=== PATIENT | female | born 1990 | race Caucasian/White ===

== ENCOUNTER 2018-07-28 10:43 | Outpatient (REF) | payer MEDICARE, MEDICAID, SELFPAY | END 2018-07-28 11:03 | LOC: LBN 10:43 | PROVIDERS: PCP Nurse Practitioner; Visit Provider Nurse Practitioner | DX: Z11.3 Encounter for screening for infections with a predominantly sexual mode of transmission (principal) | CPT/HCPCS: 87491; 87591; 87480; 87510; 87660 ==

== ENCOUNTER 2018-07-29 17:51 | Outpatient (REF) | payer MEDICARE, MEDICAID, SELFPAY ==
[2018-07-31 15:14] LABS: Chlamydia Result Negative; GC Result Negative; Specimen Description CERVIX
== END 2018-07-29 18:11 ==
LOC: LBN 17:51
PROVIDERS: PCP Nurse Practitioner; Visit Provider Nurse Practitioner
DX: Z11.3 Encounter for screening for infections with a predominantly sexual mode of transmission (principal)
CPT/HCPCS: 87491; 87591

== ENCOUNTER 2023-06-30 03:59 | Outpatient (CLI) | payer OTHER, SELFPAY ==
[2023-06-30 08:14] LABS: Abs Immature Grans 0.01 10^3/uL (0.0-0.06); Absolute Basophil Count 0.04 10^3/uL (0.0-0.2); Absolute Eosinophil Count 0.16 10^3/uL (0.0-0.7); Absolute Lymphocyte Count 1.58 10^3/uL (1.2-3.4); Absolute Monocyte Count 0.22 10^3/uL (0.1-0.8); Absolute Neutrophil Count 2.35 10^3/uL (1.2-6.7); Basophils % 0.9; Eosinophils % 3.7; HGB 14.1 g/dL (11.2-15.7); Immature Grans % 0.2; Lymphocytes % 36.2; MCH 30.5 pg (27.0-33.0); MCHC 33.6 % (32.0-36.0); MCV 91 fL (80-95); MPV 10.2 fL (8.0-11.0); Platelet Count 221 10^3/uL (130-400); RBC 4.63 10^6/uL (3.93-5.22); RDW 11.9 % (11.7-14.6); RDW-SD 39.5 fL; WBC 4.36 10^3/uL (4.4-10.8)
[2023-06-30 08:46] LABS: Hemoglobin A1C 5.3 % (<5.7)
[2023-06-30 09:28] LABS: Vitamin D 25 Total 49.7 ng/mL (30-100)
[2023-06-30 09:47] LABS: AST 14 U/L (15-37); Albumin 3.9 g/dL (3.4-5.0); Alkaline Phosphatase 77 U/L (46-116); Anion Gap 8.7 mmol/L (3-11); BUN 14 mg/dL (7-18); Bilirubin, Total 0.5 mg/dL (0.2-1.0); CO2 27.3 mmol/L (21.0-32.0); CREATININE 0.9 mg/dL (0.55-1.02); Calcium 9.1 mg/dL (8.5-10.1); Calculated LDL 104 mg/dL (<100); Chloride 101 mmol/L (98-107); Cholesterol 193 mg/dL (<200); Glucose 98 mg/dL (74-106); HDL Cholesterol 70 mg/dL (40-60); Sodium 137 mmol/L (136-145); TSH (W/Ref FT4) 2.83 uIU/mL (0.36-3.74); Total Protein 7.4 g/dL (6.4-8.2); Triglyceride 97 mg/dL (<150)
[2023-06-30 09:57] LABS: ALT 25 U/L (14-59)
[2023-07-01 09:54] LABS: HBs Antibody, Quant 13.9 mIU/mL (See Note); Hepatitis B Surface Ab Positive (See Note)
== END 2023-06-30 04:00 | disposition home or self-care (01) ==
LOC: LBO 04:01
PROVIDERS: Absent Provider Nurse Practitioner; PCP Nurse Practitioner; Visit Provider Nurse Practitioner
DX: R63.4 Abnormal weight loss (principal); Z85.71 Personal history of Hodgkin lymphoma; E55.9 Vitamin D deficiency, unspecified; Z01.84 Encounter for antibody response examination
CPT/HCPCS: 36415; 80053; 80061; 82306; 86706; 83036; 84443; 85025

== ENCOUNTER 2023-08-06 16:48 | Outpatient (REF) | payer OTHER, SELFPAY ==
--- NOTE | 2023-08-06 16:00 | PAPFT_PTH ---
PATIENT: Tiki Ferris LOC: [facility] U#:[id number] AGE/SX: 32/F ROOM: RE08/06/[address]: Jena Poe MD : 1990 BED: DIS: 08/06/2023 SPEC #: [id number] RECD: 08/06/23 18:24 STATUS: TONY REAydin #: [id number] AVERY: 08/06/23 16:[address]: Jena Poe DEPT: [facility] Cytology RECD BY: Natty Lan ENTERED: 08/06/23 18:24 SP TYPE: PAPFT KAUSHAL DR: Jazz Barajas APRN Tissues: 1 - CX/ENDOCX FOR PAP SMEARS Procedures: PAP THIN PREP/[facility] Screening HPV DNA PROBE Comments: [id number] (CHLAMYDIA/GC)
[2023-08-07 18:33] LABS: Chlamydia Result Negative (Negative); GC Result Negative (Negative)
== END 2023-08-06 16:49 | disposition home or self-care (01) ==
LOC: LBN 16:48
PROVIDERS: PCP Nurse Practitioner; Visit Provider Obstetrics & Gynecology
DX: Z12.4 Encounter for screening for malignant neoplasm of cervix (principal); Z11.51 Encounter for screening for human papillomavirus (HPV); Z11.3 Encounter for screening for infections with a predominantly sexual mode of transmission
CPT/HCPCS: 87491; 87591; 88142; 87624

== ENCOUNTER 2024-10-06 15:35 | Outpatient (REF) | payer MEDICAID, SELFPAY ==
[2024-10-08 12:41] LABS: Chlamydia Result Negative (Negative); GC Result Negative (Negative)
== END 2024-10-06 15:36 | disposition home or self-care (01) ==
LOC: LBN 15:35
PROVIDERS: PCP Nurse Practitioner; Visit Provider Obstetrics & Gynecology
DX: Z11.3 Encounter for screening for infections with a predominantly sexual mode of transmission (principal)
CPT/HCPCS: 87491; 87591